=== PATIENT | male | born 1990 | race Caucasian/White ===

== ENCOUNTER 2025-03-23 13:56 | Outpatient (AMB) | payer BC, SELFPAY ==
--- NOTE | 2025-03-23 14:02 | A.OFFPC_ITS ---
Vital Signs 03/23/25 14:11 Height 5 ft 11 in Weight 253 lb 4 oz BMI 35.3 BP 124/72 Blood Pressure Location Rt brachial Position Sitting Respiration 16 Pulse 84 Pulse Source Pulse Oximeter Temp 97.7 F Temp Source Temporal Artery Scan Pulse Oximetry (%) 96 Oxygen Delivery Method Room Air Intake Visit Reasons: CPE Intake Note: Jemal presents in the office today to establish care. Scientific Artist Required: No Allergies No Known Allergies Allergy (Verified 03/23/25 14:06) Medication List - Last Reconciled 03/23/25 by Jordan Guevara MD No Known Home Meds Tobacco use date assessed: 03/23/25 Dental Screening Dental Screen Date: 03/23/25 Did you have a dental visit in the last 12 months?: Yes Did you have a dental problem in the last 6 months where you did not have access to dental care?: No Was dental information given to patient?: Patient has dentist HPI CPE HPI Details New Patient? ?? Prior PCP:? [facility] [place] Primary Last office visit/CPE:? 2 yrs Acute issue(s):? Est Care FHX Brain Aneurysm Obesity ?? PMHx:? Papeledema, Anxiety. Prolapsed Mitral Valve. SurgHx:?Mult teeth Extractions. R Forearm ORIF. Facial Recostruction FHx:? Father: Brain Aneurysm, HTN, Tremor. Mom: Schizophrenia, Major Depression. Lupus, Crohn's. GF: Colon Ca. GM Parkinsons. 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 Quits Cigs 5 yrs ago. Still cig once a month. Uses Zins Nicotine pouch. EtOH: 6 on a Wednesday then none per week. No drugs PFSH Medical History (Updated 03/23/25 @ 14:38 by Mohsen Boss) Palpitation MVP (mitral valve prolapse) Headache Anxiety Chlamydia Broken arm Surgical History (Updated 03/23/25 @ 14:17 by Maryellen Cruz CMA) History of facial surgery H/O tooth extraction Family History (Updated 03/23/25 @ 14:19 by Maryellen Cruz CMA) Mother FH: mental illness Manic depressive illness Brother FH: mental illness Bipolar 2 disorder, major depressive episode Substance abuse Alcoholism Schizo-affective schizophrenia Father Hypertension Social History (Updated 03/23/25 @ 14:11 by Maryellen Cruz CMA) Housing: Apartment Alcohol intake: current Patient Tobacco Use Status: Current everyday Tobacco user (Nicotine Pouches) Tobacco use type: Cigarette Cigarette Packs Per Day: 1 Cigarettes Per Day: 10 Years Smoked: 4 e-Cigarette/Vaping Use: Never Used Second Hand Smoke Exposure: No service: No Current occupational status: employed 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 1. Little interest or pleasure in doing things: not at all 2. Feeling down, depressed, or hopeless: not at all 3. Trouble falling or staying asleep, or sleeping too much: several days 4. Feeling tired or having little energy: several days 5. Poor appetite or overeating: not at all 6. Feeling bad about yourself - or that you are a failure or have let yourself or your family down: not at all 7. Trouble concentrating on things, such as reading the newspaper or watching television: not at all 8. Moving or speaking so slowly that other people could have noticed. Or the opposite - being so fidgety or restless that you have been moving around a lot more than usual: not at all 9. Thoughts that you would be better off or of hurting yourself in some way: not at all Total score: 2 Depression Screening Interpretation: Negative Depression Screening Done: Yes 75831 - PHQ-9 Billing: Yes Source: Developed by Drs. Demian Ramirez, Shelly Welch, Barry Rios and colleagues, with an educational mahendra from [employer]. Thrive Questionnaire Date Thrive assessed: 03/23/25 I am a: Patient What is your living situation today?: I have a steady place to live Within the past 12 months, did the food you bought not last and you didn't have the money to get more?: Never true Within the past 12 months, did you worry whether your food would run out before you got money to buy more?: Never true Do you have trouble paying for medicines?: No Do you have trouble getting transportation to medical appointments?: No Do you have trouble paying your heating and electricity bill?: No Do you have trouble taking care of your child, family member or friend?: No Do you have trouble with day-to-day activities such as bathing, preparing meals, shopping, managing finances, etc.?: No Are you currently unemployed and looking for a job?: Yes Are you interested in more education?: No Please select the resources that you would like help with: None Currently or been in a relationship where the following occur: I choose not to answer THRIVE Score: 0 AUDIT C Alcohol Use Questionnaire (AUDIT-C) 1. How often do you have a drink containing alcohol?: 2-4 times a month 2. How many drinks containing alcohol do you have on a typical day when you are drinking?: 5 or 6 3. How often do you have six or more drinks on one occasion?: Weekly Total Score: 7 AMOS-7 AMB Questionnaire AMOS-7 Date AMOS - 7 assessed: 03/23/25 Feeling nervous, anxious, or on edge: 0 = Not at all Not being able to stop or control worryin = Not at all Worrying too much about different things: 0 = Not at all Trouble relaxin = Not at all Being so restless that it is hard to sit still: 0 = Not at all Becoming easily annoyed or irritable: 0 = Not at all Feeling afraid as if something awful might happen: 0 = Not at all Total AMOS-7 score (0-4 normal; 5-9 mild; 10-14 moderate; 15-21 severe): 0 Source: Developed by Drs. Demian Ramirez, Shelly Welch, Barry Rios and colleagues, with an educational mahendra from [employer]. AMOS-7 Assessment Billing AMOS-7 Assessment Tool: AMOS-7 Assessment 17774 Review of Systems Const Denies chills, Denies fatigue, Denies fever(s), Denies headache(s) and Denies weakness ENT Denies dizziness and Denies headache(s) Card Denies chest pain, Denies lightheadedness, Denies dyspnea and Denies other (Palpitations) Resp Denies cough, Denies dyspnea, Denies wheezing and Denies other ( shortness of breath) Musc Denies numbness and Denies tingling Neuro Denies dizziness, Denies headache(s), Denies numbness, Denies tingling, Denies paresthesias and Denies weakness Psych Denies anxiety and Denies depression Endo Denies fatigue Aller/Immun Denies wheezing Physical exam (Primary Care) Vital Signs: Last Vital Signs Temp 97.7 F 03/23/25 14:11 Pulse 84 03/23/25 14:11 Resp 16 03/23/25 14:11 BP 124/72 03/23/25 14:11 Pulse Ox 96 03/23/25 14:11 Oxygen Delivery Method Room Air 03/23/25 14:11 BMI result Body Mass Index 35.3 Tobacco/Smoking Status: Tobacco use Status Tobacco use date assessed 03/23/25 03/23/25 14:14 Patient Tobacco Use Status Current everyday Tobacco ( 03/23/25 14:14 Nicotine Pouches) Tobacco use type Cigarette 03/23/25 14:14 e-Cigarette/Vaping Use Never Used 03/23/25 14:14 PHQ-9: PHQ-9 Score PHQ-9: Total score 2 03/23/25 14:20 Depression Screening Interpretation: Negative Thrive Assessment: Date of Thrive Assessment Date Thrive assessed 03/23/25 03/23/25 14:04 Currently or been in a relationship where the following occur: I choose not to answer Const General: no acute distress and well developed Nutritional Appearance: well nourished Orientation/consciousness: patient oriented x3 HENMT Head: Yes normocephalic and Yes atraumatic Eyes General: appearance normal, both eyes and all related structures Pupils: Equal, round and reactive pupils present EOM: EOMs intact bilaterally Resp Effort & Inspection: normal respiratory effort Auscultation: clear to auscultation bilaterally Cardio Other: Faint diastolic click over the mitral region Rate: regular rate Rhythm: regular rhythm Heart sounds: S1 normal heart sound present, S2 normal heart sound present, no gallops, no murmurs and no rubs Neuro General: patient oriented x3 and gait normal Cranial nerves: Yes Equal, round and reactive pupils present Psych Affect: normal affect Coding Level of Care Code New Pt Level 3 (01417) Diagnoses Obesity E66.9 Family history of brain aneurysm Z82.49 Laboratory exam ordered as part of routine general medical examination Z00.00 Anxiety F41.9 MVP (mitral valve prolapse) I34.1 History of papilledema Z86.69 Additional Codes AMOS-7 Assessment Billing - AMOS-7 Assessment Tool: AMOS-7 Assessment 03000 ([id number]) PHQ-9 - 03056 - PHQ-9 Billing: Yes ([id number]) Assessment & Plan Assessment & Plan (1) Obesity: Code(s): E66.9 - Obesity, unspecified Category: Medical Plan: Encouraged weight loss (2) Family history of brain aneurysm: Code(s): Z82.49 - Family history of ischemic heart disease and other diseases of the circulatory system Category: Medical Plan: Familial clustering of brain aneurysm. Will get MRA of brain Advised aggressive blood pressure control. Avoid smoking and nicotine products. Moderate alcohol Control lipids Encouraged weight loss (3) Laboratory exam ordered as part of routine general medical examination: Code(s): Z00.00 - Encounter for general adult medical examination without abnormal findings Category: Medical Plan: Check labs (4) Anxiety: Code(s): F41.9 - Anxiety disorder, unspecified Category: Medical Plan: Stable (5) MVP (mitral valve prolapse): Code(s): I34.1 - Nonrheumatic mitral (valve) prolapse Category: Medical Plan: Faint diastolic click over the mitral region. Patient says this has been worked up as a kid and is benign (6) History of papilledema: Code(s): Z86.69 - Personal history of other diseases of the nervous system and sense organs Category: Medical Plan: Assembly Machine Operator noted papilledema Follow-up with her senior automation engineer as recommended Can also represent some increase intracranial pressure and patient has strong family history of aneurysm - getting MRA Orders: Orders Microalbumin, Random (w Creat) Today I10 - Essential (primary) hypertension Lipid Panel Today Z00.00 - Encounter for general adult medical examination without abnormal findings MR angio head wo con Today Z82.49 - Family history of ischemic heart disease and other diseases of the circulatory system, Z86.69 - Personal history of other diseases of the nervous system and sense organs Comprehensive [place]. Panel Fast Today Z00.00 - Encounter for general adult medical examination without abnormal findings CT NG by PCR Urine Today Z11.3 - Encounter for screening for infections with a predominantly sexual mode of transmission HIV Ab/Ag Today Z11.3 - Encounter for screening for infections with a predominantly sexual mode of transmission Hepatitis B,C Profile Today Z11.3 - Encounter for screening for infections with a predominantly sexual mode of transmission Syphilis Screen Today Z11.3 - Encounter for screening for infections with a predominantly sexual mode of transmission TSH reflex Free T4 Today Z00.00 - Encounter for general adult medical examination without abnormal findings UA CC w/rflx Micro + Cult Today Z00.00 - Encounter for general adult medical examination without abnormal findings
[2025-03-23 14:11] VITALS: BP 124/72; PULSE 84; RESP 16; TEMP 36.5; O2SAT 96; BMI 35.3
== END 2025-03-23 14:50 | disposition home or self-care (01) ==
LOC: HO.HMCFM 13:57
PROVIDERS: PCP Family Medicine; Visit Provider Family Medicine
DX: E66.9 Obesity, unspecified (principal); Z82.49 Family history of ischemic heart disease and other diseases of the circulatory system; Z00.00 Encounter for general adult medical examination without abnormal findings; F41.9 Anxiety disorder, unspecified; I34.1 Nonrheumatic mitral (valve) prolapse; Z86.69 Personal history of other diseases of the nervous system and sense organs; Z68.35 Body mass index [BMI] 35.0-35.9, adult

== ENCOUNTER → 2025-03-23 13:56 | Outpatient (BNVA) | payer BC, SELFPAY | PROVIDERS: PCP Family Medicine; Visit Provider Family Medicine | DX: Z13.31 Encounter for screening for depression (principal); Z13.39 Encounter for screening examination for other mental health and behavioral disorders | CPT/HCPCS: 96127 ==